=== PATIENT | female | born 1990 | race Caucasian/White ===

== ENCOUNTER 2017-10-27 14:41 | Emergency (ER) | payer OTHER ==
[~2017-10-27] VITALS: Ht 157.5 cm; Wt 51.0 kg
[2017-10-27 14:45] VITALS: TEMP 37; Ht 157.5 cm; Wt 51.0 kg
[2017-10-27] MEDS ORDERED: ADVIN10050 (14:53)
[2017-10-27] MEDS ORDERED: VNTHFA/IN INH (14:53)
[2017-10-27] MEDS ORDERED: BUPR8SUB19 SL (14:53)
--- NOTE | 2017-10-27 15:33 | DIAGNOSTIC IMAGING REPORT ---
LEFT HAND 3 VIEWS HISTORY: L hand brusing, pain and swelling COMPARISON: None. FINDINGS: There is no fracture or dislocation. Soft tissue swelling. No radiopaque foreign bodies. IMPRESSION: No fractures. Soft tissue swelling. Electronically signed by: Javier Akbar M.D. 10/27/2017 3:32 PM Dictated Date/Time: 10/27/2017 3:31 PM
[2017-10-27] MEDS ORDERED: KETO10TA PO (15:43)
[2017-10-27 16:00] VITALS: BP 119/68; PULSE 68; O2SAT 99
--- NOTE | 2017-10-27 19:01 | EMERGENCY ROOM VISIT NOTE ---
ED Visit Note First contact with patient: 14:47 Chief Complaint: Left hand pain and swelling. History of Present Illness: Ms. Howard is a 27-year-old white female who ambulates into the ED accompanied by male friend complaining of left hand pain and swelling. Patient reports approximately 1.5 weeks ago she had her hand trapped between a kitchen table and a wall. She reports she immediately had pain and swelling of the posterior aspect of the left hand. She was seen at the [facility] ED and reports x-rays were done and was told there was no broken bones and her hand was just bruised. She was not placed in a splint. She then reports that 2 days after that ED visit her daughter accidentally jumped on her and. Since that time she has been having increasing pain and swelling. Currently she describes a throbbing sensation throughout the posterior aspect of the left hand involving the metacarpals and MCP joints. She rates her discomfort 9/10. Her pain is nonradiating. Her pain worsens with palpation flexion and extension of all the MCP joints. She has not identified any alleviating factors related to the pain. She reports she has been using over- the-counter medications without relief of her discomfort. Associated with her pain she reports she is having difficulty extending the second MCP joint/finger and she is having mild paresthesias in the second through fifth fingers. She denies any neck pain, elbow pain, forearm pain, wrist pain, hand weakness, previous significant injuries or surgeries to the hand. Review of Systems: As noted above in history of present illness. At least body systems were reviewed and found to be negative as noted above. Past Medical History: Asthma, status post left breast lumpectomy, wisdom teeth extraction. Current Medications: Subutex, albuterol, Advair. Allergies to Medications: Amoxicillin, latex. Social History: Patient is not employed; she feels safe in her home environment ; she admits to tobacco use and denies alcohol use. Physical Examination: Vital Signs: Date Time Temp Pulse Resp B/P (MAP) Pulse Ox O2 Delivery O2 Flow Rate FiO2 10/27/17 16:00 68 16 119/68 99 10/27/17 14:45 37.0 77 16 135/72 98 GENERAL: 27-year-old female in mild distress due to pain, nontoxic-appearing, afebrile and hemodynamically stable. NEUROLOGICAL: Awake, alert and oriented to person, place and time. Answering questions appropriately and following commands. SKIN: Warm, dry and pink. No soft tissue open trauma noted. LEFT UPPER EXTREMITY: No gross bony deformity. No tenderness in the shoulder, elbow or forearm. Moderate tenderness over the posterior hand with bruising and swelling. I do not appreciate any bony deformity or crepitus. Mild tenderness over the second through fifth MCP joint without bony deformity or crepitus. On the anterior aspect of the hand patient does have swelling to the palmar surface predominantly in the area of the hyperthenar eminence. Once again no bony deformity or crepitus were felt. Decreased range of motion in flexion and extension of the index finger only at the MCP joint. Throughout the hand skin was warm and pink and capillary refill was brisk. She is able to distinguish light sensations to all dermatomes. ED Course: Patient is assessed as noted above. Patient's medication list was reviewed. Left Hand X-Rays: Were read by myself and the radiologist showing no acute fractures or dislocations with moderate swelling. Patient was offered pain medication and refused; she was given ice for pain and swelling. Patient's hand was placed in a wrist lacer splint. Patient was educated about today's findings and instructed on her treatment plan ; she verbalized understanding and agreement with this plan. Clinical Impression: Left hand pain/contusion and swelling. Disposition: Patient discharged to home in stable condition accompanied by male friend; prior to departure she was reassessed and subjectively reported she was feeling better and rated her discomfort 4/10. Plan: Patient was encouraged to alternate 10 mg of Toradol and 650 mg of acetaminophen every 3 hours as needed for pain. Patient is encouraged to keep ice on the areas of pain and swelling 5-6 times a day for 30 minutes. Patient was encouraged to use splint for 3-6 days or until pain free. Patient was encouraged to follow-up with orthopedics if no better in 6-7 days. Patient was encouraged to return to the ED for worsening pain, worsening swelling, worsening numbness/tingling or any new/concerning symptoms.
== END 2017-10-27 16:00 | disposition home or self-care (01) ==
LOC: C.EDB 14:43 → C.EDD 16:00
DX: S60.222A Contusion of left hand, initial encounter (principal); W23.1XXA Caught, crushed, jammed, or pinched between stationary objects, initial encounter; J45.909 Unspecified asthma, uncomplicated; Z88.0 Allergy status to penicillin; Z91.040 Latex allergy status; F17.200 Nicotine dependence, unspecified, uncomplicated